=== PATIENT | female | born 1955 | race Caucasian/White ===

== ENCOUNTER → 2021-10-17 14:01 | Outpatient (BNVA) | payer MEDICARE, MEDICAID, SELFPAY | PROVIDERS: PCP Nurse Practitioner Community Health; Visit Provider Nurse Practitioner Family | DX: G24.3 Spasmodic torticollis (principal); G20 Parkinson's disease; G43.109 Migraine with aura, not intractable, without status migrainosus; R06.83 Snoring | CPT/HCPCS: 99212 ==

== ENCOUNTER → 2022-01-14 10:26 | Outpatient (BNVA) | payer MEDICARE, MEDICAID, SELFPAY | PROVIDERS: PCP Nurse Practitioner Community Health; Visit Provider Nurse Practitioner Family | DX: G20 Parkinson's disease (principal); G43.109 Migraine with aura, not intractable, without status migrainosus; G24.3 Spasmodic torticollis; Z79.899 Other long term (current) drug therapy | CPT/HCPCS: 99212 ==

== ENCOUNTER → 2022-06-17 09:03 | Outpatient (BNVA) | payer MEDICARE, MEDICAID, SELFPAY | PROVIDERS: PCP Nurse Practitioner Community Health; Visit Provider Nurse Practitioner Family | DX: G20 Parkinson's disease (principal); G43.109 Migraine with aura, not intractable, without status migrainosus; G24.3 Spasmodic torticollis; Z79.899 Other long term (current) drug therapy | CPT/HCPCS: 99212 ==

== ENCOUNTER → 2022-10-21 09:34 | Outpatient (BNVA) | payer MEDICARE, MEDICAID, SELFPAY | PROVIDERS: PCP Nurse Practitioner Community Health; Visit Provider Nurse Practitioner Family | DX: G20 Parkinson's disease (principal); G24.3 Spasmodic torticollis; G43.109 Migraine with aura, not intractable, without status migrainosus; R42 Dizziness and giddiness; Z79.899 Other long term (current) drug therapy | CPT/HCPCS: 99212 ==

== ENCOUNTER 2022-10-21 11:15 | Outpatient (REF) | payer MEDICARE, MEDICAID, SELFPAY | END 2022-10-21 11:16 | disposition home or self-care (01) | LOC: HO.10HDL 11:15 | PROVIDERS: Visit Provider Nurse Practitioner Family | DX: Z13.89 Encounter for screening for other disorder (principal) | CPT/HCPCS: 36415; 87798 ==

== ENCOUNTER 2022-12-09 13:53 | Outpatient (REF) | payer MEDICARE, MEDICAID, SELFPAY ==
[2022-12-12 19:19] LABS: A. Phagocytphilium DNA,RT-PCR NOT DETECTED (NOT DETECTED); Babesia Microti DNA, RT-PCR NOT DETECTED (NOT DETECTED); Borrelia Miyamotoi,DNA RT-PCR NOT DETECTED (NOT DETECTED); E.Chaffeensis DNA RT-PCR NOT DETECTED (NOT DETECTED); Lyme(Borrelia ssp)DNA RT-PCR NOT DETECTED (NOT DETECTED)
== END 2022-12-09 13:54 | disposition home or self-care (01) ==
LOC: HO.HMGCLDS 13:53
PROVIDERS: PCP Family Medicine; Visit Provider Nurse Practitioner Family
DX: R42 Dizziness and giddiness (principal); T14.8XXA Other injury of unspecified body region, initial encounter; W57.XXXA Bitten or stung by nonvenomous insect and other nonvenomous arthropods, initial encounter; Y93.9 Activity, unspecified; Y92.9 Unspecified place or not applicable; Y99.9 Unspecified external cause status; R21 Rash and other nonspecific skin eruption; M62.838 Other muscle spasm
CPT/HCPCS: 36415; 87798; 87801

== ENCOUNTER 2022-12-11 14:00 | Outpatient (RCR) | payer MEDICARE, MEDICAID, SELFPAY ==
[2022-12-03 11:00] VITALS: BP 142/82; PULSE 67; O2SAT 97
--- NOTE | 2022-12-03 12:23 | MHC.PT.EP ---
[facility] [place] Office [place] Office [place] Office [address] Gayathri Lyles [address] [phone] F: [phone] F: [phone] F: [phone] F: [phone] Physical Therapy Plan of Care Date of Evaluation: Date of Surgery: Diagnosis: This is a 67 yo female presenting to skilled PT with script for vertigo. Assessment: This is a 67 yo female presenting to skilled PT with script for vertigo. Patient reporting that she noticed her symptoms a few months ago, mainly with rolling in bed. Her symptoms have been on and off, however she started at [facility] and during her warm up when she was on the floor she started to have an increase in symptoms again. She has had nausea and vomiting. She also has Parkinson's but thinks her balance has not been impaired from the onset of her symptoms. I can feel my eyes moving when I get the vertigo. It feels like the room is spinning. Additionally, she had experienced a tick bite prior to the symptoms starting, PCP is aware. Examination shows + oculomotor tests with saccades, (-) VBI B, and decreased cervical AROM. She was (+) for BPPV with patrica-hallpike ? B however worse on the L and PT decided to trial treatment of the L initially. On the second attempt, no dizziness or nystagmus noted. Due to time balance was not assessed however based on her neurological background, her balance is not normal at baseline. S/S consistent with B PC BPPV and she would benefit from PT 2x/wk for 4wks to address impairments, implement HEP and optimize functional mobility. Frequency and Duration: The patient will be seen 2x/wk for 4wks Short Term Goals: Fdc Goals: I in HEP normalize movement in bed without symptoms demo no eye movement in testing positions Treatment Plan: Modalities to reduce pain, spasms and effusion. Manual therapy to restore motion and function. Therapeutic exercise to improve strength and flexibility. Neuromuscular re-education for posture and balance. Therapeutic activities to return to functional activities of daily living. Electronically signed by: Veronica Juarez PT Please sign and return to therapist. Thank you for your referral.
--- NOTE | 2023-01-12 15:23 | MHC.PT.DC ---
[facility] [place] Office [place] Office [place] Office [address] Vivek Lyles [address] [phone] F: [phone] F: [phone] F: [phone] F: [phone] Physical Therapy Discharge Report Diagnosis: This is a 67 yo female presenting to skilled PT with script for vertigo. Date of Surgery: Date of Evaluation: 12/03/22 Date of Discharge: 01/12/23 Treatments to Date: 4 Cancellations to Date: 0 No Shows to Date: 0 Discharge Status: Achieved Goals Improved Function Independent with HEP Discharge Summary: 12/11: Patient was negative in all 6 canals, educated her on keeping one appointment and calling to cancel if symptoms remain steady. Also spent time on Parkinson's programs in the area. DC'd chart after 30 days. Electronically signed by: Veronica Juarez PT Please sign and return to therapist. Thank you for your referral.
== END 2023-01-12 15:23 | disposition home or self-care (01) ==
LOC: HO.PTCHIC 14:00
PROVIDERS: PCP Family Medicine; Visit Provider Nurse Practitioner Family
DX: R42 Dizziness and giddiness (principal)
CPT/HCPCS: 95992; 97110; 97162

== ENCOUNTER 2023-04-22 09:37 | Outpatient (AMB) | payer MEDICARE, MEDICAID, SELFPAY ==
--- NOTE | 2023-04-22 09:39 | MHC.OFFVIS ---
Intake Vital Signs 04/22/23 09:42 Weight 133 lb BP 108/72 Blood Pressure Location Rt brachial Position Sitting Pulse 77 Pulse Source Pulse Oximeter Pulse Oximetry (%) 97 Oxygen Delivery Method Room Air Intake Visit Reasons: 6m follow up - LVM Intake Note: F/U for parkinsons Police Officer Required: No Allergies droperidol [From Inapsine] Allergy (Verified 10/21/22 09:45) unknown Penicillins Allergy (Verified 10/21/22 09:45) Unknown pramipexole [From Mirapex] Allergy (Verified 04/22/23 09:40) unknown ropinirole [From Requip] Allergy (Verified 04/22/23 09:40) unknown Medication List - Last Reconciled 04/22/23 by TRINO Huerta carbidopa-levodopa 25-100 mg 2 tabs PO QID 90 days carbidopa-levodopa 50-200 mg ER 1 tab PO BEDTIME 90 days fluoride (sodium) 1.1% (Denta 5000 Plus) appl PO DAILY riboflavin (vitamin B2) 200 mg (2 x 100 mg) PO BID 90 days selegiline HCl 5 mg PO DAILY 90 days HPI HPI Comments History of Present Illness Details 67-yr-old female presents for f/u visit. Pt denies any significant interval medical history changes. Pt's current PD medication regimen: CD-LD 25-100mg 2 tabs qid and CD-LD ER 50-200mg qhs Pt's primary concerns are: Plans to see GI- has been having right abd pain- has a h/o kidney stones- but no recent stones. Had a colonoscopy- normal. Higher fat foods seem to trigger abd pain. She tried coming off dairy- has noticed less stiffness and heaviness in her hips and thighs. However, if she eats certain foods she may still have right abd pain. RUQ US- was normal. She completed PT, which was helpful for the dizziness and feels over steadier. Pt reports: ADL's: Ind Swallowing: No issues recently, doing better w/ swallowing meds. Cough: Denies. Drooling: No Orthostatic lightheadedness: None. Trying to drink more fluids. Constipation: Rarely- if eats plain white rice or white flour pasta. Stiffness: Improved. Using a standing desk for art. Tremor: At times. Dyskineisa: Mild lingual movements. Dystonia: Mores if stressed/tired or in the evenings, can have dystonic movements in arms, neck, and right hip/groin pain. Falls: None Hallucinations: No Memory: No Sleep: Most of the time sleeping well- the recent heat has been more difficult. Exercise: She has not yet joined the gym yet, but has been quite active. Other: Cervical dystonia is ok. Headaches- better w/ B2. PFSH Medical History Nephroblastomatosis Surgical History H/O lithotripsy H/O: hysterectomy Family History Mother HTN (hypertension) Father HTN (hypertension) Social History Household Members: Spouse and Children Alcohol intake: current Alcohol intake frequency: does not drink Patient Tobacco Use Status: Never used Tobacco Current occupational status: retired Review of Systems Const All systems reviewed & are unremarkable except as noted in HPI and below Physical Exam Vital Signs: Last Vital Signs Pulse 77 04/22/23 09:42 BP 108/72 04/22/23 09:42 Pulse Ox 97 04/22/23 09:42 Oxygen Delivery Method Room Air 04/22/23 09:42 Const General: cooperative and no acute distress Resp Effort & Inspection: normal respiratory effort and able to speak in complete sentences Neuro Other: Expression: Mild decreased expression Voice: Soft Tremor: Mild UE tremor Tone: RUE tone Dyskinesia: Mild lingual movements FFM: ok, slightly decreased on left. Foot taps: LLE bradykinesia- induces mid-foot cramping Gait: Stands well, decreased arm swing, short steps. Psych: Pleasant affect Assessment & Plan Assessment & Plan (1) Parkinson disease: Comment: More dystonic features. No h/o genetic testing done to r/o HD. Initial diagnosis in [place]. Code(s): G20 - Parkinson's disease (2) Migraine headache with aura: Code(s): G43.109 - Migraine with aura, not intractable, without status migrainosus (3) Cervical dystonia: Code(s): G24.3 - Spasmodic torticollis Plan For dizziness and recent tic bite: Tic panel- normal Dizziness imrpoved- monitor clinically ? For PD- Continue to try to take increased fluids.. Continue increasing physical activity. Continue Sinemet 25-100mg 2 tabs QID at 7am, 11am, 3pm, 7pm Continue Sinemet CR 50-200mg 1 tab qhs. Continue Selegeline 5mg qam. Inbrija prn dystonia (has sample). For headaches- Continue Riboflavin 200mg bid for prevention. Magnesium previously not tolerated. Ibuprofen/Aleve/Sumatriptan at onset of migraine onset, may take w/ Benadryl. For cervical dystonia- Monitor clinically. Gen'l: Gi consult as planeed- ? allergy consult if GI work-up negative. ? f/u in 6 months or sooner prn. Coding Level of Care Code Est Pt Level 4 (52857) Diagnoses Parkinson disease G20 Migraine headache with aura G43.109 Cervical dystonia G24.3
[2023-04-22 09:42] VITALS: BP 108/72; PULSE 77; O2SAT 97
== END 2023-04-22 10:27 | disposition home or self-care (01) ==
LOC: HO.HSMS 09:37
PROVIDERS: PCP Family Medicine; Visit Provider Nurse Practitioner Family
DX: G20 Parkinson's disease (principal); G43.109 Migraine with aura, not intractable, without status migrainosus; G24.3 Spasmodic torticollis
CPT/HCPCS: 99214

== ENCOUNTER → 2023-04-22 09:37 | Outpatient (BNVA) | payer MEDICARE, MEDICAID, SELFPAY | PROVIDERS: PCP Family Medicine; Visit Provider Nurse Practitioner Family | DX: G20 Parkinson's disease (principal); G43.109 Migraine with aura, not intractable, without status migrainosus; G24.3 Spasmodic torticollis | CPT/HCPCS: 99212 ==

== ENCOUNTER 2023-10-26 09:30 | Outpatient (AMB) | payer MEDICARE, MEDICAID, SELFPAY ==
--- NOTE | 2023-10-26 09:37 | A.OFFVIS_ITS ---
Intake Vital Signs 10/26/23 09:39 Weight 133 lb 6 oz BP 124/82 Blood Pressure Location Rt brachial Position Sitting Pulse 80 Pulse Source Pulse Oximeter Pulse Oximetry (%) 99 Oxygen Delivery Method Room Air Intake Visit Reasons: 6m follow up-Confirmed Intake Note: Patient presents for 6 month follow up Allergies droperidol [From Inapsine] Allergy (Verified 10/26/23 09:39) unknown Penicillins Allergy (Verified 10/26/23 09:39) Unknown pramipexole [From Mirapex] Allergy (Verified 10/26/23 09:39) unknown ropinirole [From Requip] Allergy (Verified 10/26/23 09:39) unknown Medication List - Last Reconciled 10/26/23 by Richelle Clancy, SENIOR HR MANAGER carbidopa-levodopa 25-100 mg 2 tabs PO QID 90 days carbidopa-levodopa 50-200 mg ER 1 tab PO BEDTIME 90 days fluoride (sodium) 1.1% (Denta 5000 Plus) appl PO DAILY riboflavin (vitamin B2) 200 mg (2 x 100 mg) PO BID 90 days selegiline HCl 5 mg PO DAILY 90 days HPI HPI Comments History of Present Illness Details 68-yr-old female presents for f/u visit. Pt denies any significant interval medical history changes. She is scheduled for cataract surgery on 10/30/23 and 11/16/23- by Dr Magana. Pt's current PD medication regimen: CD-LD 25-100mg 2 tabs qid and CD-LD ER 50- 200mg qhs. She has been holding Selegiline d/t the upcoming surgeries. She did have a few days of increased dystonia- typically when she is off, tired, or stressed, and typically later in the day- she wonders if this was d/t stress. ADL's: Ind Swallowing: Doing well Drooling: None Orthostatic lightheadedness: None Constipation: Occasionally- using benefiber qd prn. Tries to avoid constipation d/t cystocele Freezing: Rarely Stiffness: Can be stiff. Tremor: Some but not a lot Falls: None Hallucinations: None Memory: Good Sleep: Sleeping ok Exercise: Other: Still trying to avoid dairy, high fat foods- and trying to eat more protein based meals earlier in the day- to avoid biliary colic s/s. Can still have headache attacks- if she overdoes it. [facility] Medical History (Updated 10/26/23 @ 17:14 by TRINO Huerta) Tick bite Snoring Parkinson disease Nephroblastomatosis Surgical History H/O lithotripsy H/O: hysterectomy Family History Mother HTN (hypertension) Father HTN (hypertension) Social History Household Members: Spouse and Children Alcohol intake: current Alcohol intake frequency: does not drink Patient Tobacco Use Status: Never used Tobacco Current occupational status: retired Review of Systems Const All systems reviewed & are unremarkable except as noted in HPI and below Physical Exam Vital Signs: Last Vital Signs Pulse 80 10/26/23 09:39 BP 124/82 10/26/23 09:39 Pulse Ox 99 10/26/23 09:39 Oxygen Delivery Method Room Air 10/26/23 09:39 Const General: cooperative and no acute distress Resp Effort & Inspection: normal respiratory effort and able to speak in complete sentences Neuro Other: General: A*O x's 3 Expression: Mild decreased expression Voice: Soft Tremor: Mild RUE tremor Tone: RUE tone Dyskinesia: None observed today- pt wearing mask FFM: Slightly decreased on left. Foot taps: LLE bradykinesia Gait: Stands well, decreased arm swing, short steps. Psych: Pleasant affect Assessment & Plan Assessment & Plan (1) Parkinson's disease with dyskinesia: Comment: More dystonic features. No h/o genetic testing done to r/o HD. Initial diagnosis in [place]. Code(s): G20.B1 - Parkinson's disease with dyskinesia, without mention of fluctuations (2) Cervical dystonia: Code(s): G24.3 - Spasmodic torticollis (3) Migraine headache with aura: Code(s): G43.109 - Migraine with aura, not intractable, without status migrainosus Plan For dizziness Dizziness improved- monitor clinically ? For PD- Continue to try to take increased fluids.. Continue increasing physical activity. Continue Sinemet 25-100mg 2 tabs QID at 7am, 11am, 3pm, 7pm Continue Sinemet CR 50-200mg 1 tab qhs. Continue to hold Selegeline 5mg for upcoming cataract sx's- monitor if any worsening of stiffness, dystonia while holding. If no difference, consider holding further. Inbrija prn dystonia (has sample). ? For headaches- Continue Riboflavin 200mg bid for prevention. Magnesium previously not tolerated. Ibuprofen/Aleve/Sumatriptan at onset of migraine onset, may take w/ Benadryl. Info shared on migraine neuromodlation stimulation devices- such as cefaly or nerivio. ? For cervical dystonia- Monitor clinically. ? f/u in 6 months or sooner prn. Coding Level of Care Code Est Pt Level 4 (80473) Diagnoses Parkinson's disease with dyskinesia G20.B1 Cervical dystonia G24.3 Migraine headache with aura G43.109
[2023-10-26 09:39] VITALS: BP 124/82; PULSE 80; O2SAT 99
== END 2023-10-26 10:26 | disposition home or self-care (01) ==
PROVIDERS: PCP Family Medicine; Visit Provider Nurse Practitioner Family
DX: G20.B1 Parkinson's disease with dyskinesia, without mention of fluctuations (principal); G24.3 Spasmodic torticollis; G43.109 Migraine with aura, not intractable, without status migrainosus
CPT/HCPCS: 99214

== ENCOUNTER → 2023-10-26 09:30 | Outpatient (BNVA) | payer MEDICARE, MEDICAID, SELFPAY | PROVIDERS: PCP Family Medicine; Visit Provider Nurse Practitioner Family | DX: G20.B1 Parkinson's disease with dyskinesia, without mention of fluctuations (principal); G24.3 Spasmodic torticollis; G43.109 Migraine with aura, not intractable, without status migrainosus | CPT/HCPCS: 99212 ==

== ENCOUNTER 2024-11-14 09:11 | Outpatient (AMB) | payer MEDICARE, SELFPAY ==
--- NOTE | 2024-11-14 09:32 | MHC.OFFVIS ---
Vital Signs 11/14/24 09:40 Height 5 ft 4 in Weight 130 lb BMI 22.3 BP 108/62 Blood Pressure Location Rt brachial Position Sitting Pulse 86 Pulse Source Pulse Oximeter Pulse Oximetry (%) 97 Intake Visit Reasons: 6 Month F/U Inside Upholsterer Required: No Accompanied by: Self / Same As Patient Allergies droperidol [From Inapsine] Allergy (Verified 10/26/23 09:39) unknown Penicillins Allergy (Verified 10/26/23 09:39) Unknown pramipexole [From Mirapex] Allergy (Verified 10/26/23 09:39) unknown ropinirole [From Requip] Allergy (Verified 10/26/23 09:39) unknown Medication List - Last Reconciled 11/14/24 by TRINO Huerta carbidopa-levodopa 25-100 mg 2 tabs PO QID 90 days carbidopa-levodopa 50-200 mg ER 1 tab PO BEDTIME 90 days cholecalciferol (vitamin D3) 25 mcg PO DAILY fluoride (sodium) 1.1% (Denta 5000 Plus) appl PO DAILY mecobalamin (vitamin B12) 1,000 mcg PO DAILY riboflavin (vitamin B2) 200 mg (2 x 100 mg) PO BID 90 days rimegepant (Nurtec ODT) 75 mg PO ONCE PRN 30 days MDD 1 tab selegiline HCl 5 mg PO DAILY 90 days Do you need a note to return to daycare/school/sports/work: No HPI Comments Details: 69-yr-old female presents for f/u visit of movement d/o. Pt denies any significant interval medical history changes. She underwent bilateral cataract surgery in Oct and Nov 2023- by Dr Magana. She has had an interval diagnosis of osteoporosis- she was tried on daily alendronate, however this caused a flare-up of her IBS s/s- having increased stools after any po intake. So is not taking anything for this now. She has been undergoing GI work-up through [facility], she was tried on dicyclomine but it caused sleepiness. She has had a vaginal prolapse, initially was thought to be mild, had pelvic floor therapy and realized it was more pronounced than previously thought. She has had 3 children (3rd via ), and had a hysterectomy in 2008. She is currently using a pesary. Without the pesary, the prolapse can prevent urination. She states she has been volunteering a the [employer], [employer], and does need to lift some time. She has had episodes of intense fatigue- had period where hse was becoming sleepy when driving. She was found to have low vit D and B12, and this has improved since starting B-12. She has never had a sleep study. Pt's current PD medication regimen: CD-LD 25-100mg 2 tabs qid and CD-LD ER 50-200mg qhs. She has resumed Selegiline 5 mg q.a.m.-feels like it helps her anxiety, but notes it has a high co-pay on her current insurance. Overall, her movements are stable. If tired or stressed, especially in the afternoon, the dystonia will start kicking in. ADL's: Ind Swallowing: Having a bit more difficulty swallowing pills. Has a family member who is a [employer]PERVISOR- who gives her tips. Drooling: None Orthostatic lightheadedness: None Constipation: Stable- continues to work on diet- considering doing the low fod map diet Freezing: Rarely Stiffness: Can be stiff. Tremor: Some but not a lot Falls: Rarely- not worse Hallucinations: None Memory: Good Sleep: Sleeping can be on and off- maybe r/t GI s/s. She is concerned that she has had episodes of daytime sleepiness, where she has started to be sleepy while driving. She is now more conscious to avoid driving sleepy. She does continue to snore. Did not previously have sleep study. Exercise: She did try outdoor ice skating, and did ok with this once she became reacclimated to this. Is hoping to return to the [facility]- has not been going due to her recent medical appointments. Continues to have migraine headache attacks, typically 2-3 times a month, which can last 1-3 days. Baseline migraine headache: Throbbing headache a/w photophobia, phonophobia, fatigue, activity intolerance. Previously had tried Sumatriptan and Naratriptan, but caused rebound headaches. [facility] Medical History Tick bite Snoring Parkinson disease Nephroblastomatosis Surgical History H/O lithotripsy H/O: hysterectomy Family History Mother HTN (hypertension) Father HTN (hypertension) Social History Household Members: Spouse and Children Alcohol intake: current Alcohol intake frequency: does not drink Patient Tobacco Use Status: Never used Tobacco Current occupational status: retired Physical Exam Vital Signs: Last Vital Signs Pulse 86 11/14/24 09:40 BP 108/62 11/14/24 09:40 Pulse Ox 97 11/14/24 09:40 BMI result Body Mass Index 22.3 Const General: cooperative and no acute distress Resp Effort & Inspection: normal respiratory effort and able to speak in complete sentences Neuro Other: General: A&O x's 3 Expression: Mild decreased expression Voice: Soft Tremor: No visible tremor today. Tone: RUE tone. Right hip knee tightness, exam movement elicits slight dystonia. Dyskinesia: None observed today FFM: Slightly decreased. Foot taps: bradykinesia Gait: Stands well, decreased arm swing, knees slightly bent, short steps with lower floor clearance. Psych: Pleasant affect Assessment & Plan Assessment & Plan (1) Parkinson's disease with dyskinesia: Comment: More dystonic features. No h/o genetic testing done to r/o HD. Initial diagnosis in [place]. Code(s): G20.B1 - Parkinson's disease with dyskinesia, without mention of fluctuations Category: Medical (2) Snoring: Code(s): R06.83 - Snoring Category: Medical (3) Excessive daytime sleepiness: Comment: ESS -12 Code(s): G47.19 - Other hypersomnia Category: Medical (4) Migraine headache with aura: Code(s): G43.109 - Migraine with aura, not intractable, without status migrainosus Category: Medical (5) Cervical dystonia: Code(s): G24.3 - Spasmodic torticollis Category: Medical Plan For sleep difficulties, excessive daytime sleepiness, and snoring: Patient is advised to undergo in-lab PSG to assess for sleep apnea and PLMS in setting of Parkinson's disease. For PD- dystonic- Continue to try to take increased fluids.. Continue increasing physical activity. Continue Sinemet 25-100mg 2 tabs QID at 7am, 11am, 3pm, 7pm Continue Sinemet CR 50-200mg 1 tab qhs. Continue Selegeline 5mg q.a.m.- this may indeed help her mood/anxiety. Could consider trialing a antidepressant/antianxiety agent instead. Inbrija prn dystonia (has sample). Previous trials- pramipexole and ropinirole- not tolerated. Amantadine caused hallucinations. ? For headaches- Continue Riboflavin 200mg bid for prevention. Ibuprofen/Aleve/ at onset of migraine onset, may take w/ Benadryl. Trial Rimegepant ODT (Nurtec ODT) 75mg, 1 tab at onset of headache.. Max of 1 tabs (75mg) per 24 hours. May adjunct with OTC Tylenol 650mg q 4 hours, Ibuprofen 600mg q 6 hours, or Naproxen 440mg q 12 hrs prn. Potential adverse effects, include but are not limited to fatigue, nausea, dry mouth, constipation. Info shared on nonpharmacological migraine treatment interventions. Previous migraine treatment trials: Sumatriptan and naratriptan caused rebound headache. Magnesium previously not tolerated. ? For cervical dystonia- Monitor clinically. For dizziness Dizziness improved- monitor clinically ? f/u in 6 months or sooner prn. Orders: Orders RT PSG in-lab sleep study Today G20.B1 - Parkinson's disease with dyskinesia, without mention of fluctuations, G47.19 - Other hypersomnia, R06.83 - Snoring Medications: New rimegepant (Nurtec ODT) 75 mg PO ONCE 30 days PRN 8 tabs 3RF migraine headache MDD 1 tab Refilled selegiline HCl 5 mg PO DAILY 90 days 90 caps 3RF carbidopa-levodopa 25-100 mg 2 tabs PO QID 90 days 720 tabs 3RF carbidopa-levodopa 50-200 mg ER 1 tab PO BEDTIME 90 days 90 tabs 3RF Coding Level of Care Code Est Pt Level 4 (70612) Diagnoses Parkinson's disease with dyskinesia G20.B1 Snoring R06.83 Excessive daytime sleepiness G47.19 Migraine headache with aura G43.109 Cervical dystonia G24.3
[2024-11-14 09:40] VITALS: BP 108/62; PULSE 86; O2SAT 97; BMI 22.3
== END 2024-11-14 10:47 | disposition home or self-care (01) ==
PROVIDERS: PCP Family Medicine; Visit Provider Nurse Practitioner Family
DX: G20.B1 Parkinson's disease with dyskinesia, without mention of fluctuations (principal); R06.83 Snoring; G47.19 Other hypersomnia; G43.109 Migraine with aura, not intractable, without status migrainosus; G24.3 Spasmodic torticollis
CPT/HCPCS: 99214

== ENCOUNTER → 2024-11-14 09:11 | Outpatient (BNVA) | payer MEDICARE, SELFPAY | PROVIDERS: PCP Family Medicine; Visit Provider Nurse Practitioner Family | DX: G20.B1 Parkinson's disease with dyskinesia, without mention of fluctuations (principal); G43.109 Migraine with aura, not intractable, without status migrainosus; G47.19 Other hypersomnia; G24.3 Spasmodic torticollis; R06.83 Snoring | CPT/HCPCS: 99212 ==

== ENCOUNTER → 2024-12-12 20:30 | Outpatient (BNV) | payer MEDICARE, SELFPAY | PROVIDERS: Visit Provider Psychiatry & Neurology Neurology | DX: R06.83 Snoring (principal); G47.19 Other hypersomnia | CPT/HCPCS: 95810 ==

== ENCOUNTER → 2024-12-12 20:30 | Outpatient (REF) | payer MEDICARE, SELFPAY ==
--- OUTSIDE RECORDS SUMMARY | 2024-12-12 21:11 | XMS_ITS | Encounter Summary ---
Author Organization [employer] Address [address] [facility] [address] [place] [address] Care Team Providers Care Document Manager Name Role Phone Parish Romero NP Primary Care Provider Encounter Details Date Type Department Care Team (Late st Contact Info) Description 12/08/2024 9:00 AM EST Immunization [facility] MEDICAL [address] [place] [address] Need for vaccination (Primary Dx) Social History Tobacco Use Types Packs/Day Years Used Date Smoking Tobacco: Never Passive Smoke Exposure: Never Smokeless Tobacco: Never Alcohol Use Standard Drinks/Week Comments Not Currently 0 (1 standard drink = 0.6 oz pur e alcohol) 1 or 2 small drinks per year Housing Stability Answer Date Recorded What is your housing situation today? I have gina valdes 08/08/[address] you li ve. Do you have problems with any of the following? None of the above 08/08/2024 Food Insecurity Answer Date Recorded Within the past 12 months, y ou worried that your food would run out before you got money to buy more: Never True 08/08/2024 Within the past 12 months,th e food you bought just didn't last and you didn't have enough money to get more: Never True Transportation Answer Date Recorded In the past 12 months, has l ack of transportation kept you from medical appts, meetings, work or from getting things needed for daily living? No 08/08/2024 Utilities Answer Date Recorded In the past 12 months, has t he electric, gas, oil or water company threatened to shut off services in your home? No 08/08/2024 Depression Answer Date Recorded Patient Health Questionnaire-2 Score 0 08/08/2024 Internet Access Answer Date Recorded Internet Access Q1 Yes 08/08/2024 Internet Access Q2 Not on file 08/08/2024 Comments No Sex and Gender Information Value Date Recorded Sex Assigned at Female 11/24/2022 11:11 AM EST Legal Sex Female 5:35 PM EDT Gender Identity Non-Binary 09/22/2024 10:39 AM EST Sexual Orientation Straight 11/24/2022 11 :12 AM EST documented as of this encounter Progress Notes * Janel Coreas RN - 12/08/2024 9:00 AM EST Loulou Moreau 1955 presents unaccompanied today for a nurse-led vaccination administration: COVID19 visit. Subjective: Patient reports feeling well today; denies: fever, chills, cold symptoms over the last 24 hours. Objective: There were no vitals taken for this visit. Brief physical exam completed with patient fully clothed: GENERAL: Well-appearing non-binary in no acute distress. HEENT: No scleral icterus. Moist mucous membranes. No nasal discharge. PULMONARY: Breathing comfortably on room air. MUSCULOSKELETAL: Gait appropriate and symmetric. EXTREMITIES: Warm and well perfused. NEUROLOGIC: Motor function grossly intact. Assessment: Patient is due for vaccination administration: COVID 19 . Patient is healthy and well-appearing anddenies questions necessitating provider visit. Patient is eligible for a nurse-led visit. Educated patient on procedure. Reviewed possible sided effects of vaccination and provided VIS in patient preferred language. . Patient has no additional questions. Obtained verbal consent to continue with visit. Administration documented. Patient had no adverse reactions to administration. Plan: Call with questions or concerns. Next visit with nurse: kin Next visit with provider: 02/09/25 Patient meets criteria for entirety of visit to be completed by nurse today. Visit led and completed by Janel Coreas RN. documented in this encounter Plan of Treatment Upcoming Encounters Date Type Department Care Team (Late st Contact Info) Description 01/17/2025 11:[address] [facility] NUTRITION [address] [place] [address] Ida Donovan, FAIZA [address] [place] [address] 02/09/2025 9:00 AM EDT Office Visit [facility] MEDICAL [address] [place] [address] Parish Romero NP [address] [place] [address] 04/27/2025 9:20 AM EDT Office Visit [facility] Dental [address] [place] [address] Juliette Arriaza LLD 9 [place] [address] documented as of this encounter Visit Diagnoses Diagnosis Need for vaccination- Primary Need for prophylactic vaccination and inoculation against unspecified single disease documented in this encounter Care Teams Document Manager Relationship Specialty Start Date End Date Parish Romero NP [address] [place] [address] PCP - General Internal Medicine 02/18/23 documented as of this encounter
--- OUTSIDE RECORDS SUMMARY | 2024-12-12 21:11 | XMS_ITS | Encounter Summary ---
Author Organization [employer] Address [address] [place] [address] 7[address] [place] [address] Care Team Providers Care Automobile Radiator Mechanic Name Role Phone Parish Romero NP Primary Care Provider Encounter Details Date Type Department Care Team (Latest Contact Info) Description 10/08/2020 Abstract [facility] Dental, Provider, DDS Social History Tobacco Use Types Packs/Day Years Used Date Smoking Tobacco: Never Assessed Comments Unknown Sex and Gender Information Value Date Recorded Sex Assigned at Female 11/24/2022 11:11 AM EST Legal Sex Female 5:35 PM EDT Gender Identity Non-Binary 09/22/2024 10:39 AM EST Sexual Orientation Straight 11/24/2022 11 :12 AM EST documented as of this encounter Plan of Treatment Upcoming Encounters Date Type Department Care Team (Late st Contact Info) Description 01/17/2025 11:30 AM EDT Telemedicine [facility] NUTRITION [address] [place] [address] Ida Donovan, RD [address] [place] [address] 02/09/2025 9:00 AM EDT Office Visit [facility] MEDICAL [address] [place] [address] Parish Roemro NP [address] [place] [address] 04/27/2025 9:20 AM EDT Office Visit [facility] Dental [address] [place] [address] Juliette Arriaza LLD 9 [place] [address] documented as of this encounter Visit Diagnoses Not on filedocumented in this encounter Care Teams Automobile Radiator Mechanic Relationship Specialty Start Date End Date Parish Romero NP [address] [place] [address] PCP - General Internal Medicine 02/18/23 documented as of this encounter
--- OUTSIDE RECORDS SUMMARY | 2024-12-12 21:11 | XMS_ITS | Encounter Summary ---
Author Organization [employer] Address [address] [facility] [address] [place] [address] Care Team Providers Care Registry Rn Name Role Phone Parish Romero NP Primary Care Provider Encounter Details Date Type Department Care Team (Late st Contact Info) Description 10/22/2024 Orders Only [facility] [address] [place] [address] Parish Romero NP [address] [place] [address] Social History Tobacco Use Types Packs/Day Years Used Date Smoking Tobacco: Never Passive Smoke Exposure: Never Smokeless Tobacco: Never Alcohol Use Standard Drinks/Week Comments Not Currently 0 (1 standard drink = 0.6 oz pur e alcohol) 1 or 2 small drinks per year Housing Stability Answer Date Recorded What is your housing situation today? I have ginamichi valdes 08/08/[address] you [...] Info) Description 01/17/2025 11:30 AM EDT Telemedicine [facility] NUTRITION [address] [place] [address] Ida Donovan, FAIZA [address] [place] [address] 02/09/2025 9:00 AM EDT Office Visit [facility] MEDICAL [address] [place] [address] Parish Romero NP [address] [place] [address] 04/27/2025 9:20 AM EDT Office Visit [facility] Dental [address] [place] [address] Juliette Arriaza LLD 9 [place] [address] documented as of this encounter Procedures Procedure Name Priority Date/Time Associated Diagnosis Comments COMPREHENSIVE METABOLIC PANEL Routine 10/19/2024 9:56 AM EST CBC WITH AUTO DIFFERENTIAL Routine 10/19/2024 9:55 AM EST documented in this encounter Results * Comprehensive Metabolic Panel (10/19/2024 9:56 AM EST) Blood Venous blood specimen / Unknown Parish Romero BACK LINE COOK LAB BLOOD ORDERABLES Final R esult * CBC auto differential (10/19/2024 9:55 AM EST) Blood Venous blood specimen / Unknown Parish Romero NP LAB BLOOD ORDERABLES Final R esult documented in this encounter Visit Diagnoses Not on filedocumented in this encounter Care Teams Registry Rn Relationship Specialty Start Date End Date Parish Romero NP [address] [place] [address] PCP - General Internal Medicine 02/18/23 documented as of this encounter
--- OUTSIDE RECORDS SUMMARY | 2024-12-12 21:11 | XMS_ITS | Encounter Summary ---
Author Organization [employer] [facility] Address [address] [facility] 7t [place] [address] Care Team Providers Care Segment Block Layer Name Role Phone Parish Romero NP Primary Care Provider Encounter Details Date Type Department Care Team (Late st Contact Info) Description 12/16/2023 Orders Only [facility] [address] [place] [address] Parish Romero NP [address] [place] [address] Social History Tobacco Use Types Packs/Day Years Used Date Smoking Tobacco: Never Passive Smoke Exposure: Never Smokeless Tobacco: Never Comments No Sex and Gender Information Value [...] 01/17/2025 11:[address] [facility] NUTRITION [address] [place] [address] Ida Donovan, FAIZA [address] [place] [address] 02/09/2025 9:00 AM EDT Office Visit [facility] MEDICAL [address] [place] [address] Parish Romero NP [address] [place] [address] 04/27/2025 9:20 AM EDT Office Visit [facility] Dental [address] [place] [address] Juliette Arriaza LLD 9 [place] [address] documented as of this encounter Procedures Procedure Name Priority Date/Time Associated Diagnosis Comments HEPATIC FUNCTION PANEL Routine 2:02 PM EST URINALYSIS, COMPLETE, WITH REFLEX TO CULTURE Routine 12/16/2023 2:01 PM EST MAGNESIUM Routine 12/16/2023 12:59 PM EST CBC WITH AUTO DIFFERENTIAL Routine 12/16/2023 11:34 AM EST documented in this encounter Results * Hepatic Function Panel (12/16/2023 2:02 PM EST) Blood Venous blood specimen / Unknown Parish Romero NP LAB BLOOD ORDERABLES Final R esult * Urinalysis, Complete, with Reflex to Culture (12/16/2023 2:01 PM EST) Urine Parish Romero NP LAB URINE ORDERABLES Final R esult * Magnesium (12/16/2023 12:59 PM EST) Blood Venous blood specimen / Unknown Parish Romero NP LAB BLOOD ORDERABLES Final R esult * CBC auto differential (12/16/2023 11:34 AM EST) Blood Venous blood specimen / Unknown Parish Romero NP LAB BLOOD ORDERABLES Final R esult documented in this encounter Visit Diagnoses Not on filedocumented in this encounter Care Teams Segment Block Layer Relationship Specialty Start Date End Date Parish Romero NP [address] [place] [address] PCP - General Internal Medicine 02/18/23 documented as of this encounter
--- OUTSIDE RECORDS SUMMARY | 2024-12-12 21:11 | XMS_ITS | Encounter Summary ---
Author Organization [employer] [facility] Address [address] [place] [address] 7[address] [place] [address] Care Team Providers Care Computer Training Specialist Name Role Phone Parish Romero NP Primary Care Provider [phone] Encounter Details Date Type Department Care Team (Latest Contact Info) Description 11/12/2021 Abstract [facility], Provider, DDS Social [...] Info) Description 01/17/2025 11:30 AM EDT Telemedicine [facility] NUTRITION [address] [place] [address] Ida Donovan, RD [address] [place] [address] 02/09/2025 9:00 AM EDT [facility] Visit [facility] MEDICAL [address] [place] [address] Parish Romero NP [address] [place] [address] 04/27/2025 9:20 AM EDT Office Visit [facility] Dental [address] [place] [address] Juliette Arriaza LLD 9 [place] [address] documented as of this encounter Visit Diagnoses Not on filedocumented in this encounter Care Teams Computer Training Specialist Relationship Specialty Start Date End Date Parish Romero NP [address] [place] [address] PCP - General Internal Medicine 02/18/23 documented as of this encounter
--- OUTSIDE RECORDS SUMMARY | 2024-12-12 21:11 | XMS_ITS | Encounter Summary ---
Author Organization [employer] Address [address] [facility] 7[address] [place] [address] Care Team Providers Care Bullion Weigher Name Role Phone Parish Romero NP Primary Care Provider Encounter Details Date Type Department Care Team (Latest Contact Info) Description 03/28/2019 Abstract [facility] Dental, Provider, DDS Social [...] Info) Description 01/17/2025 11:30 AM EDT Telemedicine [facility] NUTRITION [address] [place] [address] Ida Donovan, RD [address] [place] [address] 02/09/2025 9:00 AM EDT Office Visit [facility] MEDICAL [address] [place] [address] Parish Romero NP [address] [place] [address] 04/27/2025 9:20 AM EDT Office Visit [facility] Dental [address] [place] [address] Juliette Arriaza LLD 9 [place] [address] documented as of this encounter Visit Diagnoses Not on filedocumented in this encounter Care Teams Bullion Weigher Relationship Specialty Start Date End Date Parish Romero NP [address] [place] [address] PCP - General Internal Medicine 02/18/23 documented as of this encounter
--- OUTSIDE RECORDS SUMMARY | 2024-12-12 21:11 | XMS_ITS | Clinical Summary ---
Author Organization [facility] Address [address] [address] Phone Care Team Providers Care Chrome Cleaner Name Role Phone Parish Romero NP Primary Care Provider [phone] Allergies Active Allergy Reactions Criticality Noted Date Comments Droperidol Other (see comments) High 11/23/2019 Apnea Erythromycin Nausea And Vomiting Low 11/23/2019 Morphine Nausea And Vomiting Low 11/23/2019 Other 01/08/2022 Penicillins Rash Low 11/23/2019 Pramipexole Other (see comments) Low 11/23/2019 Ropinirole Other (see comments) Low 11/23/2019 Impulsiveness Medications carbidopa-levod opa (SINEMET) 25-100 MG per tablet Take 2 tablets by mouth in the morning and 2 tablets at noon and 2 tablets in the evening and 2 tablets before bedtime. 0 Active selegiline (ELDEPRYL) 5 MG tablet Take 5 mg by mouth 1 (one) time each day with breakfast 0 Active Riboflavin (Vitamin B-2) 100 MG tablet Take 2 tablets by mouth 2 (two) times a day 2 Active carbidopa-levod opa CR (SINEMET CR) 50-200 MG per CR tablet Take 1 tablet by mouth at bed time 1 Active Active Problems Problem Noted Date Diagnosed Date Nephrolithiasis 01/09/2022 Social History Tobacco Use Types Packs/Day Years Used Date Smoking Tobacco: Never Alcohol Use Standard Drinks/Week Comments Yes 0 (1 standard drink = 0.6 oz pur e alcohol) occasionally Comments Unknown Sex and Gender Information Value Date Recorded Sex Assigned at Not on file Legal Sex Female 2:20 PM EDT Gender Identity Not on file Sexual Orientation Not on file 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 Not on file Not on file Not on file Plan of Treatment Health Maintenance Due Date Last Done Comments Breast Cancer Screening 1955 Colorectal Cancer Screening: Annual FOBT 2006 Colorectal Cancer Screening: Colonoscopy 2006 Colorectal Cancer Screening: Sigmoidoscopy 2006 Pneumococcal Vaccine: 65+ Ye ars (1 of 1 - PCV) 2022 Influenza Vaccine (#1) 2024 Hepatitis B Vaccine Aged Out No longe r eligible based on patient's age to complete this topic Insurance MEDICARE MEDICAID [place] Care Teams Chrome Cleaner Relationship Specialty Start Date End Date Parish Romero NP [address] [place] [address] PCP - General Nurse Practitioner 12/23/21
--- OUTSIDE RECORDS SUMMARY | 2024-12-12 21:11 | XMS_ITS | Clinical Summary ---
Author Organization [employer] [facility] Address [address] [place] [address] 7[address] [place] [address] Care Team Providers Care Tobacco Checkout Clerk Name Role Phone Parish Romero NP Primary Care Provider [phone] Allergies Active Allergy Reactions Criticality Noted Date Comments Droperidol Shortness of breath,Other High 11/23/2019 Apnea Erythromycin Nausea Only,Nausea And Vomiting Low 11/23/2019 Morphine And Codeine Nausea And Vomiting Low 2019 Penicillins Rash Low 11/23/2019 Pramipexole Other Low 11/23/2019 Other reaction(s): apnea, Unknown Ropinirole Low 11/23/2019 Other reaction(s): impulsiveness, Mental Status Change, Impulsiveness Medications riboflavin (vitamin B2) 100 mg tablet tablet Vitamin B2 Ac tive carbidopa-levodopa (Sinemet) 25-100 MG tablet 2 tablets in the morning and 2 tablets at noon and 2 tablets in the evening and 2 tablets before bedtime. Takes one dose 4 times daily: 7, 11, 3, 7 . 03/21/20 20 Active selegiline (Eldepryl) 5 MG capsule Take 5 mg by mouth in the morning. 10/21/19 23 Active estradiol (Estrace) 0.1 MG/GM vaginal cream Insert 2 g into the vagina. 06/04/20 23 Active carbidopa-levodopa CR (Sinemet CR) 50-200 MG ER tablet Take 1 tablet by mouth at bedtime. 04/16/20 23 Active Sodium Fluoride (PreviDent 5000 Booster Plus) 1.1 % paste Please Roscoe with toothpaste twice a day 96 g 09/21/20 23 Active ondansetron ODT (Zofran-ODT) 4 MG disintegrating tablet Take 4 mg by mouth every 8 (eight) hours if needed for nausea. PRN 12/16/19 Active alendronate (Fosamax) 10 MG tabletIndications: Osteoporosis without current pathological fracture, unspecified osteoporosis type Take 1 tablet (10 mg) by mouth before breakfast. Take in the morning with a full glass of water, on an empty stomach, and do not take anything else by mouth or lie down for the next 30 min. 90 tablet 1 08/08/20 Active Additional Information Patient not taking.Reported on 10/13/2024 Calcium Carb-Cholecalcifer ol (Caltrate 600+D3) 600-20 MG-MCG tabletIndications: Osteoporosis without current pathological fracture, unspecified osteoporosis type Take 1 tablet by mouth 2 times daily. 180 tablet 1 08/08/20 Active Additional Information Patient not taking.Reported on 10/13/2024 hyoscyamine ER (Levbid) 0.375 MG 12 hr tabletIndications: Irritable bowel syndrome with both constipation and diarrhea Take 1 tablet (0.375 mg) by mouth every 12 (twelve) hours if needed for cramping. Do not crush or chew. 180 tablet 09/06/20 Active Additional Information Patient not taking.Reported on 10/13/2024 Active Problems Problem Noted Date Diagnosed Date Irritable bowel syndrome wit h both constipation and diarrhea 09/06/2024 Osteoporosis without current pathological fractu re 08/04/2024 Cystocele, unspecified 08/04/2024 Frequent headaches 11/24/2022 Parkinsonism 11/24/2022 Plantar fascial fibromatosis of left foot 2022 Calculus of kidney 01/09/2022 Encounters Date Type Department Care Team Description 12/08/2024 9:00 AM EST Immunization [facility] MEDICAL [address] [place] [address] Need for vaccination (Primary Dx) 10/25/2024 9:20 AM EST Office Visit [facility] Dental [address] [place] [address] Juliette Arriaza LLD Stage 2 grade B generalized periodontitis per AAP/EFP 2017 classification (Primary Dx); Encounter for dental examination 10/22/2024 Orders Only [facility] Information Management [address] [place] [address] Parish Romero NP 10/13/2024 9:00 AM EST Office Visit [facility] MEDICAL [address] [place] [address] Parish Romero NP Irritable bowel syndrome with both constipation and diarrhea (Primary Dx); Cystocele with rectocele; Osteoporosis without current pathological fracture, unspecified osteoporosis type; Parkinson's disease, unspecified whether dyskinesia present, unspecified whether manifestations fluctuate (CMS/HCC); Weight loss; Healthcare maintenance 10/06/2024 Travel from Last 3 Months Immunizations Name Administration Dates Next Due INFLUENZA VACCINE QUADRIVALE NT RECOMBINANT PRESERVATIVE FREE RIV4 08/04/2020 Influenza Quadrivalent Adjuvanted 10/22/2023 Influenza injectable quadrivalent preservative f ree 08/16/2021 Influenza, trivalent, adjuvanted 08/08/2024 Lindsay SARS-CoV-2 Vaccination 01/15/2021 Moderna Covid-19 Vaccine 12+ 12/08/2024,08/06/20 23 Moderna Covid-19 Vaccine 6+ Bivalent 09/26/2022 Tdap 04/09/2020 Family History Medical History Relation Name Comments Alcohol abuse Brother Dago (half-brother) Arthritis Father Charles Hearing loss Father Charles Drug abuse Mother Guerline Mental illness Mother Guerline Alcohol abuse Mother's Brother Chucky Hearing loss Sister Stefanie Relation Name Status Comments Brother Dago (half-brother) Father Charles Mother Guerline Mother's Brother Chucky Sister Stefanie Social History Tobacco Use Types Packs/Day Years Used Date Smoking Tobacco: Never Passive Smoke Exposure: Never Smokeless Tobacco: Never Tobacco Cessation:Counseling Given: Not Answered Alcohol Use Standard Drinks/Week Comments Not Currently 0 (1 standard drink = 0.6 oz pur e alcohol) 1 or 2 small drinks per year Housing Stability Answer Date Recorded What is your housing situation today? I have gina keisha 08/08/[address] you li [...] Orientation Straight 11/24/2022 11 :12 AM EST Last Filed Vital Signs Vital Sign Reading Time Taken Comments Blood Pressure 130/80 10/13/2024 9:05 AM EST Pulse 72 10/13/2024 9:05 AM EST Temperature 36.4 ??C (97.6 ??F) 10/13/2024 9:05 AM ES T Respiratory Rate 16 08/06/2023 9:36 AM EDT Oxygen Saturation 98% 10/22/2023 9:02 AM EST Inhaled Oxygen Concentration - - Weight 58.1 kg (128 lb) 10/13/2024 9:05 AM EST Height 162.6 cm (5' 4 ) 08/08/2024 9:00 AM EDT Body Mass Index 21.97 08/08/2024 9:00 AM EDT Plan of Treatment Upcoming Encounters Date Type Department Care Team (Late st Contact Info) Description 01/17/2025 11:30 AM EDT Telemedicine [facility] NUTRITION [address] [place] [address] Ida Donovan, FAIZA [address] [facility] [place] [address] 02/09/2025 9:00 AM EDT Office Visit [facility] MEDICAL [address] [place] [address] Parish Romero, ABIEL [address] [place] [address] 04/27/2025 9:20 AM EDT Office Visit [facility] Dental [address] [place] [address] Juliette Arriaza LLD [address] [place] [address] Health Maintenance Due Date Last Done Comments CT Colonography 1957 FIT DNA/Cologuard 1957 FIT 1957 FOBT 1957 Sigmoidoscopy 1957 Alcohol/Substance Use Screening 1969 Hepatitis C Screening 1975 Hepatitis A Vaccines (1 of 2 - Risk 2-dose series) 1976 Pneumococcal Vaccine: 50+ Years (1 of 1 - PCV) 2007 Zoster Vaccines (1 of 2) 2007 Hepatitis B Vaccines (1 of 3 - Risk 3-dose series) 2017 Dental X-Ray: Bitewings 04/21/2025 04/20/20 24, 11/24/2022, 11/12/2021, Additional history exists Dental Oral Exam 04/25/2025 10/25/2024, 07/2024, 10/13/2023, Additional history exists Dental Prophylaxis 04/25/2025 10/25/2024, 0 04/20/2024, 10/13/2023, Additional history exists Depression Screening 08/08/2025 08/08/2024, 08/08/20 24 SDOH Screening 08/08/2025 08/08/2024 Tobacco Screening 10/25/2025 10/25/2024 Mammogram 12/29/2025 12/30/2023, 12/11, 12/24/2021, Additional history exists Dental X-Ray: Full Mouth 04/21/2027 04/20/2024, 03/12 DTaP/Tdap/Td Vaccines (2 - Td or Tdap) 04/09/2030 04/09/2020 Colonoscopy 03/18/2032 03/18/2022 Colorectal Cancer Screening 03/18/2032 RSV Patients and Patients Aged 60 years or older (1 - 1-dose 75+ series) 2032 Influenza Vaccine Completed 08/08/2024, , 08/16/2021, Additional history exists COVID-19 Vaccine Completed 12/08/2024, , 09/26/2022, Additional history exists HIB Vaccines Aged Out No longer eligi ble based on patient's age to complete this topic HPV Vaccines Aged Out No longer eligi ble based on patient's age to complete this topic IPV Vaccines Aged Out No longer eligi ble based on patient's age to complete this topic Meningococcal Vaccine Aged Out No jalil gavin eligible based on patient's age to complete this topic RSV under 20 months Aged Out No longe r eligible based on patient's age to complete this topic Rotavirus Vaccines Aged Out No longer eligible based on patient's age to complete this topic Procedures Procedure Name Priority Date/Time Associated Diagnosis Comments ORAL HYGIENE INSTRUCTIONS Routine 10/25/2024 9:20 AM EST Full PROPHYLAXIS - ADULT Routine 10/25/2024 9:20 AM EST PERIODIC ORAL EVALUATION - ESTABLISHED PATIENT Routine 10/25/2024 9:20 AM EST COMPREHENSIVE METABOLIC PANEL Routine 10/19/2024 9:56 AM EST CBC WITH AUTO DIFFERENTIAL Routine 10/19/2024 9:55 AM EST AMB REFERRAL TO OB-[employer]UT[employer] SALES CONSULTANT Routine 10/14/2024 Cystocele with rectocele INTRAORAL - COMPLETE SERIES OF RADIOGRAPHIC IMAGES Routine 04/20/2024 10:00 AM EDT BI MAMMOGRAM SCREENING BILATERAL Routine 12/30/2023 Healthcare maintenance COLONOSCOPY Routine 03/18/2022 12:00 AM EDT from Last 3 Months or Most Recently Relevant to Health Maintenance Results * Comprehensive Metabolic Panel (10/19/2024 9:56 AM EST) Blood Venous blood specimen / Unknown Parish Romero NP LAB BLOOD ORDERABLES Final R esult * CBC auto differential (10/19/2024 9:55 AM EST) Blood Venous blood specimen / Unknown us Parish Romero NP LAB BLOOD ORDERABLES Final R esult * Referral to Obstetrics / Gynecology (10/14/2024) us Parish Romero NP OUTPATIENT REFERRAL ORDERABL ES Final Result * BI Mammogram Screening Bilateral (12/30/2023) Anatomical Region Laterality Modality Breast Bilateral Mammography Parish Romero NP IMG BI PROCEDURES Final Resu lt * COLONOSCOPY: [facility] (03/18/2022 12:00 AM EDT) Anatomical Region Laterality Modality Endoscopy 03/18/2022 Narrative 03/18/2022 12:00 AM EDT Refer to [facility] for result details Legacy Procedure: COLONOSCOPY: [facility] Procedure Note Provider, MD Ab - 02/05/2023 Refer to [facility] for result details Legacy Procedure: COLONOSCOPY: [facility] Historical Provider ENDOSCOPY PROCEDURE ORDER IVA Final Result from Last 3 Months or Most Recently Relevant to Health Maintenance Insurance [facility] DUAL COMPLETE HMO Care Teams Tobacco Checkout Clerk Relationship Specialty Start Date End Date Parish Romero NP [address] [place] [address] PCP - General Internal Medicine 02/18/23
--- OUTSIDE RECORDS SUMMARY | 2024-12-12 21:11 | XMS_ITS | Encounter Summary ---
Author Organization [employer] Address [address] [place] [address] Care Team Providers Care Vending Machine Coin Collector Name Role Phone Parish Romero NP Primary Care Provider [phone] Reason for Visit * Reason Comments Med Change Request Encounter Details Date Type Department Care Team ([facility] st Contact Info) Description 09/06/2024 [place] [facility] MEDICAL [address] [place] [address] Parish Romero NP [address] [place] [address] Irritable bowel syndrome with both constipation and diarrhea Social History Tobacco Use Types Packs/Day Years [...] t he electric, gas, oil or water [email or web address] threatened to shut off services in your [...] AM EST documented as of this encounter Miscellaneous Notes * Telephone Encounter - Joy Ho LPN - 09/19/2024 11:46 AM EST My chart message sent to patient * Telephone Encounter - Rita Gill - 09/16/2024 3:16 PM EST Patient called again * Telephone Encounter - Estrella Mccarthy - 09/16/2024 9:16 AM EST Patient called Please call back * Telephone Encounter - Alexandria Tillman RN - 09/15/2024 3:33 PM EST LMOM for patient to call. * Telephone Encounter - Joy Ho LPN - 09/12/2024 3:54 PM EST Call placed to patient. LMOM to return call. * Telephone Encounter - Parish Romero NP - 09/10/2024 9:34 AM EST Please call pt. She has symptoms of irritable bowel. She tried Bentyl in the past but stopped due to somnolence. I recently prescribed LevBid, but her insurance will not pay for that. She can either (1) pay for the LevBid out of pocket, or (2) call her GI, make an appt, and see what they suggest. If her GI prescribes the LevBid, her insurance will probably pay for it.. documented in this encounter Plan of Treatment Upcoming Encounters Date Type Department Care Team (Late st Contact Info) Description 01/17/2025 11:30 AM EDT Telemedicine [facility] NUTRITION [address] [place] [address] Ida Donovan, RD [address] [place] [address] 02/09/2025 9:00 AM EDT Office Visit [facility] MEDICAL [address] [place] [address] Parish Romero NP [address] [place] [address] 04/27/2025 9:20 AM EDT Office Visit [facility] Dental [address] [place] [address] Juliette Arriaza LLD [address] [place] [address] documented as of this encounter Visit Diagnoses Diagnosis Irritable bowel syndrome with both constipation and diarrhea documented in this encounter Care Teams Vending Machine Coin Collector Relationship Specialty Start Date End Date Parish Romero NP [address] [place] [address] PCP - General Internal Medicine 02/18/23 documented as of this encounter
--- OUTSIDE RECORDS SUMMARY | 2024-12-12 21:11 | XMS_ITS | Encounter Summary ---
Author Organization [employer] [facility] Address [address] [place] [address] 7[address] [place] [address] Care Team Providers Care Cigar Making Machine Operator Name Role Phone Parish Romero NP Primary Care Provider Encounter Details Date Type Department Care Team (Latest Contact Info) Description 05/19/2022 Abstract [facility] Dental, Provider, DDS Social [...] Info) Description 01/17/2025 11:30 AM EDT Telemedicine [facility] NUTRITION [address] [place] [address] Ida Donovan, RD [address] [place] [address] 02/09/2025 9:00 AM EDT Office Visit [facility] MEDICAL [address] [place] [address] Parsih Romero NP [address] [place] [address] 04/27/2025 9:20 AM EDT Office Visit [facility] Dental [address] [place] [address] Juliette Arriaza LLD [address] [place] [address] documented as of this encounter Visit Diagnoses Not on filedocumented in this encounter Care Teams Cigar Making Machine Operator Relationship Specialty Start Date End Date Parish Romero NP [address] [place] [address] PCP - General Internal Medicine 02/18/23 documented as of this encounter
== END ==
LOC: HO.SL 20:30
PROVIDERS: Visit Provider Nurse Practitioner Family
DX: G47.19 Other hypersomnia (principal); G20.B1 Parkinson's disease with dyskinesia, without mention of fluctuations; R06.83 Snoring
CPT/HCPCS: 95810

== ENCOUNTER 2025-05-15 10:56 | Outpatient (AMB) | payer MEDICARE, SELFPAY ==
--- NOTE | 2025-05-15 11:00 | A.OFFVIS_ITS ---
Vital Signs 05/15/25 11:01 Height 5 ft 4 in Weight 128 lb 6 oz BMI 22.0 BP 120/80 Blood Pressure Location Lt brachial Position Sitting Pulse 82 Pulse Source Pulse Oximeter Pulse Oximetry (%) 99 Oxygen Delivery Method Room Air Intake Visit Reasons: 6 mo follow up Intake Note: Patient presents follow up Parkinson/Migraine medication. PSG in chart Sanding Machine Tender Required: No Accompanied by: Self / Same As Patient Allergies droperidol (From Inapsine) Allergy (Verified 05/15/25 11:03) unknown Penicillins Allergy (Verified 05/15/25 11:03) Unknown pramipexole (From Mirapex) Allergy (Verified 05/15/25 11:03) unknown ropinirole (From Requip) Allergy (Verified 05/15/25 11:03) unknown Do you need a note to return to daycare/school/sports/work: No HPI Comments Details: 69-yr-old female presents for f/u visit of movement d/o. Pt denies any significant interval medical history changes. However, pt has had to concentrate on helping her w/ his health issues. 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 She states she did not tolerate the alendronate- for diagnosis of osteoporosis. Pt's current PD medication regimen: CD-LD 25-100mg 2 tabs qid and CD-LD ER 50- 200mg qhs. Selegiline 5 mg q.a.m.- it helps her anxiety, again notes it has a high co-pay on her current insurance. Overall, her movements are stable. If tired or stressed, especially in the afternoon, the dystonia will start kicking in. She feels a bit better about identifying her Parkinson's versus dystonia symptoms. ADL's: Ind Swallowing: Occasional- then cannot consider eating that food for months. Uses strategies to identify and prevent choking. Using Calcium and Mag gummies. Was holding B2- as she started to choke on it. Has a family member who is a [employer]- who gives her tips. Drooling: None Orthostatic lightheadedness: Occasionally- trying to drink enough Constipation: Chronic constipation- continues to work on diet. Maybe impacted by the pessary placement. Followed by [facility] : Chronic vaginal prolapse, previously had pelvic floor therapy. She is currently using a pesary. Without the pesary, the prolapse can prevent urination. Freezing: Occasionally Stiffness: Can be stiff. Tremor: Some but not a lot Falls: No interval falls Hallucinations: None. Previously when on amantadine. Memory: Good. Some word retrieval at times. Sleep: Sleep study was normal. Sleeps better if she is more active. But sleeps l ess well if not as active or had done more activity than usual- like she cannot get comfortable in any position. Prone to pacing in general. Prone to lower extremity and upper extremity restlessness, urge to move. She has a h/o menorrhagia, tried on oral iron supplement- did not tolerate it. Exercise: She is active through volunteering at the [employer]- and is now lifting more regularly, she is encouraged her cold volunteers to allow her to lift and be active as she feels able to.. Is hoping to return to the [facility]- has not been going due to her recent medical appointments. Social: she now has foster grandchildren as her neighbor has 4 foster children. Her grandchildren live in [place]. 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 A noticing an increase in migraine attacks, since holding B2, more stress. A migraine can last 1-3 days. Baseline migraine headache: Throbbing headache a/w photophobia, phonophobia, fatigue, activity intolerance. Previously had tried Sumatriptan and Naratriptan, but caused rebound headaches. [facility] Medical History Snoring Tick bite Parkinson disease Nephroblastomatosis Surgical History H/O lithotripsy H/O: hysterectomy Family History Mother HTN (hypertension) Father HTN (hypertension) Social History Household Members: Spouse and Children Alcohol intake: current Alcohol intake frequency: does not drink Patient Tobacco Use Status: Never used Tobacco Current occupational status: retired Physical Exam Vital Signs: Last Vital Signs Pulse 82 05/15/25 11:01 BP 120/80 05/15/25 11:01 Pulse Ox 99 05/15/25 11:01 Oxygen Delivery Method Room Air 05/15/25 11:01 BMI result Body Mass Index 22.0 Const General: cooperative and no acute distress Resp Effort & Inspection: normal respiratory effort and able to speak in complete sentences Neuro Other: General: A&O x's 3 Expression: Mild decreased expression Voice: Soft Tremor: No visible tremor today. Tone: RUE tone. Foot taps- elicits mild right foot and toes dystonia. Dyskinesia: Mild oral lingual dyskinesia FFM: Slightly decreased, more so on left Foot taps: Bradykinesia, more so on left Gait: Stands well, decreased arm swing, knees slightly bent, short steps with lower floor clearance, overall steady gait Psych: Pleasant affect Assessment & Plan Assessment & Plan (1) Parkinson's disease with dyskinesia: Comment: More dystonic features. No h/o genetic testing done to r/o HD. Initial diagnosis in [place]. Code(s): G20.B1 - Parkinson's disease with dyskinesia, without mention of fluctuations Category: Medical Qualifiers: Fluctuating manifestations: with fluctuating manifestations Qualified Code(s): G20.B2 - Parkinson's disease with dyskinesia, with fluctuations (2) Snoring: Code(s): R06.83 - Snoring Category: Medical (3) Excessive daytime sleepiness: Comment: ESS -12 Code(s): G47.19 - Other hypersomnia Category: Medical (4) Migraine headache with aura: Code(s): G43.109 - Migraine with aura, not intractable, without status migrainosus Category: Medical Qualifiers: Status migrainosus presence: without status migrainosus Intractability: not intractable Qualified Code(s): G43.109 - Migraine with aura, not intractable, without status migrainosus (5) Cervical dystonia: Code(s): G24.3 - Spasmodic torticollis Category: Medical Plan For sleep difficulties, daytime sleepiness, snoring, RLS s/s: 12/12/2024- in-lab PSG w/o evidence for sleep apnea or PLMS. We will request recent labs from PCP-to assess for recent evidence of anemia, and most recent ferritin level of done. Future considerations: If hypo ferritin anemia present, consider Hematology consult for possible iron infusion-as patient has not tolerated oral iron supplements in the past. For PD- dystonic- Continue to try to take increased fluids.. Continue increasing physical activity. Continue Sinemet 25-100mg 2 tabs QID at 7am, 11am, 3pm, 7pm Continue Sinemet CR 50-200mg 1 tab qhs. Continue Selegeline 5mg q.a.m.- this may indeed help her mood/anxiety. Could consider trialing a antidepressant/antianxiety agent instead. * Sending this order specifically to [facility] pharmacy, as selegiline has a high [id number] co-pay. Inbrija prn dystonia (has sample). Previous trials- pramipexole and ropinirole- not tolerated. Amantadine caused hallucinations. ? For headaches- Resume Riboflavin 200mg bid for prevention- advised to check online for al Ibuprofen/Aleve/ at onset of migraine onset, may take w/ Benadryl. Trial Rimegepant ODT (Nurtec ODT) 75mg, 1 tab at onset of headache.. Max of 1 tabs (75mg) per 24 hours. May adjunct with OTC Tylenol 650mg q 4 hours, Ibuprofen 600mg q 6 hours, or Naproxen 440mg q 12 hrs prn. Potential adverse effects, include but are not limited to fatigue, nausea, dry mouth, constipation. Info shared on nonpharmacological migraine treatment interventions. Previous migraine treatment trials: Sumatriptan and naratriptan caused rebound headache. Magnesium previously not tolerated. ? For cervical dystonia- Monitor clinically. For dizziness Dizziness improved- monitor clinically ? f/u in 6 months or sooner prn. Medications: Refilled selegiline HCl 5 mg PO DAILY 90 caps 3RF 90 days Coding Level of Care Code Est Pt Level 4 (59207) Complex EM visit Add On G2211 Diagnoses Parkinson's disease with dyskinesia and fluctuating manifestations G20.B2 Fluctuating manifestations: with fluctuating manifestations Snoring R06.83 Excessive daytime sleepiness G47.19 Migraine with aura and without status migrainosus, not intractable G43.109 Status migrainosus presence: without status migrainosus Intractability: not intractable Cervical dystonia G24.3
[2025-05-15 11:01] VITALS: BP 120/80; PULSE 82; O2SAT 99; BMI 22.0
--- OUTSIDE RECORDS SUMMARY | 2025-05-15 11:55 | XMS_ITS | Clinical Summary ---
Author Organization [employer] Address [address] [place] [address] [address] [place] [address] Care Team Providers Care Ice Cream Shop Associate Name Role Phone Parish Romero NP Primary Care Provider Allergies Active Allergy Reactions Criticality Noted Date [...] times daily: 7, 11, 3, 7 . 0 Active selegiline (Eldepryl) 5 MG capsule Take 5 mg by mouth in the morning. 3 Active estradiol (Estrace) 0.1 MG/GM vaginal cream Insert 2 g into the vagina. 3 Active carbidopa-levodopa CR (Sinemet CR) 50-200 MG ER tablet Take 1 tablet by mouth at bedtime. 3 Active ondansetron ODT (Zofran-ODT) 4 MG disintegrating tablet Take 4 mg by mouth every 8 (eight) hours if needed for nausea. PRN 4 Active Calcium-Phosphorus -Vitamin D (CALCIUM/VITAMIN D3/ADULT GUMMY PO) Take by mouth. Active cyanocobalamin (Vitamin B-12) 100 MCG tablet Take 100 mcg by mouth Once per day. Active Sodium Fluoride (PreviDent 5000 Booster Plus) 1.1 % paste Please [place] with toothpaste twice a day 96 g Active Active Problems Problem Noted Date Diagnosed Date Irritable bowel syndrome wit h both constipation and diarrhea 09/06/2024 Osteoporosis without current pathological fractu re 08/04/2024 Cystocele with rectocele 08/04/2024 Frequent headaches 11/24/2022 Parkinsonism 11/24/2022 Plantar fascial fibromatosis of left foot 2022 Calculus of kidney 01/09/2022 Encounters Date Type Department Care Team Description 03/27/2025 3:[address] [facility] NUTRITION [address] [place] [id number] Irritable bowel syndrome with both constipation and diarrhea (Primary Dx) 03/06/2025 Travel 02/21/2025 9:00 AM EDT Office Visit [facility] [address] [place] [address] Fallon Red L[place] 02/15/2025 11:00 AM EDT Office Visit [facility] [address] [place] [address] [place] L[place] 02/14/2025 10:00 AM EDT Office Visit [facility] [address] [place] [address] Fallon Red L[place] 02/13/2025 Travel from Last 3 Months Immunizations Immunization Administration Dates Next Due INFLUENZA VACCINE QUADRIVALE NT RECOMBINANT PRESERVATIVE FREE RIV4 08/04/2020 Influenza Quadrivalent Adjuvanted 10/22/2023 Influenza injectable quadrivalent preservative f ree 08/16/2021 Influenza, trivalent, adjuvanted 08/08/2024 [place] SARS-CoV-2 Vaccination 01/15/2021 Moderna Covid-19 Vaccine 12+ 12/08/2024,08/06/20 23 Moderna Covid-19 Vaccine 6+ Bivalent 09/26/2022 Pneumococcal Conjugate PCV 20 02/09/2025 Tdap 04/09/2020 Family History Medical History Relation [...] 1 or 2 small drinks per year Alcohol Answer Date Recorded How often do you have a drink containing alcohol ? 0 02/09/2025 How many drinks containing a lcohol do you have on a typical day when you are drinking? 0 02/09/2025 How often do you have six or more drinks on one occasion? 0 02/09/2025 Housing Stability Answer Date Recorded What is [...] Sign Reading Time Taken Comments Blood Pressure 147/82 02/09/2025 8:56 AM EDT Pulse 87 02/09/2025 8:56 AM EDT Temperature 36.6 C (97.9 F) 02/09/2025 8:56 AM EDT Respiratory Rate 16 08/06/2023 9:36 AM EDT Oxygen Saturation 98% 10/22/2023 9:02 AM EST Inhaled Oxygen Concentration - - Weight 59.4 kg (131 lb) 02/09/2025 8:56 AM EDT Height 162.6 cm (5' 4 ) 08/08/2024 9:00 AM EDT Body Mass Index 22.49 08/08/2024 9:00 AM EDT Plan of Treatment Upcoming Encounters Date Type Department Care Team (Late st Contact Info) Description 09/19/2025 2:[address] [facility] NUTRITION [address] [place] [address] Ida Donovan, FAIZA [address] [place] [address] 10/17/2025 10:00 AM EST Office Visit [facility] MEDICAL [address] [place] [address] Parish Romero NP [address] [place] [address] Health Maintenance Due Date Last Done Comments CT Colonography 1957 FIT DNA/Cologuard 1957 FOBT 1957 Sigmoidoscopy 1957 Hepatitis C Screening 1975 Hepatitis A Vaccines (1 of 2 - Risk 2-dose series) 1976 Zoster Vaccines (1 of 2) 2007 Hepatitis B Vaccines (1 of 3 - Risk 3-dose series) 2017 Dental X-Ray: Bitewings 04/21/2025 04/20/20 24, 11/24/2022, 11/12/2021, Additional history exists Dental Oral Exam 04/25/2025 10/25/2024, 07/2024, 10/13/2023, Additional history exists Dental Prophylaxis 04/25/2025 10/25/2024, 0 04/20/2024, 10/13/2023, Additional history exists COVID-19 Vaccine ( season) 2025 12/08/2024, 08/06/2023, 09/26/2022, Additional history exists Influenza Vaccine (#1) 2025 , 10/22/2023, 08/16/2021, Additional history exists Depression Screening 08/08/2025 08/08/2024, 08/08/20 SDOH Screening 08/08/2025 08/08/2024 FIT 11/01/2025 11/01/2024 Mammogram 12/29/2025 12/30/2023, 12/11, 12/30/2023, Additional history exists Alcohol/Substance Use Screening 02/09/2026 02/09/2025 Tobacco Screening 02/21/2026 02/21/2025 Dental X-Ray: Full Mouth 04/21/2027 04/20/2024, 03/12 DTaP/Tdap/Td Vaccines (2 - Td or Tdap) 04/09/2030 04/09/2020 Colonoscopy 03/18/2032 03/18/2022 Colorectal Cancer Screening 03/18/2032 RSV Patients and Patients Aged 60 years or older (1 - 1-dose 75+ series) 2032 Pneumococcal Vaccine: 50+ Years Completed 02/09/2025 HIB Vaccines Aged Out No longer eligi ble based on patient's age to complete this topic HPV Vaccines Aged Out No longer eligi ble based on patient's age to complete this topic IPV Vaccines Aged Out No longer eligi ble based on patient's age to complete this topic Meningococcal B Vaccine Aged Out No l onger eligible based on patient's age to complete [...] Procedure Name Priority Date/Time Associated Diagnosis Comments 12 MOD RESIN-BASED COMPOSITE - 3 SURF, POSTERIOR Routine 02/21/2025 9:00 AM EDT 13 M RESIN-BASED COMPOSITE - 1 SURF, POSTERIOR Routine 02/21/2025 9:00 AM EDT 10 DL RESIN-BASED COMPOSITE - 2 SURF, ANTERIOR Routine 02/15/2025 11:00 AM EDT 11 DL RESIN-BASED COMPOSITE - 2 SURF, ANTERIOR Routine 02/14/2025 10:00 AM EDT Full PROPHYLAXIS - ADULT Routine 10/25/2024 9:20 AM EST PERIODIC ORAL EVALUATION - ESTABLISHED PATIENT Routine 10/25/2024 9:20 AM EST INTRAORAL - COMPLETE SERIES OF RADIOGRAPHIC IMAGES Routine 04/20/2024 10:00 AM EDT BI MAMMOGRAM SCREENING BILATERAL Routine 12/30/2023 Healthcare maintenance COLONOSCOPY Routine 03/18/2022 12:00 AM EDT from Last 3 Months or Most Recently Relevant to Health Maintenance Results * BI Mammogram Screening Bilateral (12/30/2023) Anatomical Region Laterality Modality Breast Bilateral Mammography Parish Romero OPHTHALMIC MEDICAL TECHNICIAN IMG BI PROCEDURES Final Resu lt * COLONOSCOPY: [facility] (03/18/2022 12:00 AM EDT) Anatomical Region Laterality Modality Endoscopy 03/18/2022 Narrative 03/18/2022 12:00 AM EDT Refer to Fovea for result details Legacy Procedure: COLONOSCOPY: [facility] Procedure Note Provider, MD Ab - 02/05/2023 Refer to Valerie for result details Legacy Procedure: COLONOSCOPY: [facility] Historical Provider ENDOSCOPY PROCEDURE ORDER IVA Final Result from Last 3 Months or Most Recently Relevant to Health Maintenance Insurance [facility] MEDICARE ADVANTAGE HMO DENTAL - [facility] PPO Care Teams Ice Cream Shop Associate Relationship Specialty Start Date End Date Parish Romero [facility] [place] [address] PCP - General Internal Medicine 02/18/23
--- OUTSIDE RECORDS SUMMARY | 2025-05-15 11:55 | XMS_ITS | Encounter Summary ---
Author Organization [facility] Address [address] [place] [address] [place] [phone] Phone Care Team Providers Care Respiratory Care Program Director Name Role Phone Eva King MANAGEMENT DEVELOPER Primary Care Provider Parish Romero NP Primary Care Provide r Parish Romero SPRING SETTER Primary Care Provide r Encounter Details Date Type Department Care Team (Latest Contact Info) Description 12/15/2019 Transcribe Orders Virtual Department [address] [place] [address] Jared Spencer MD [address] [place] [address], [address] [phone] [email or web address] Calculus of kidney (Primary Dx) Social History Tobacco Use Types Packs/Day Years Used Date Smoking Tobacco: Never Smokeless Tobacco: Never Alcohol Use Standard Drinks/Week Comments Not Currently 0 (1 standard drink = 0.6 oz pur e alcohol) Comments No Sex and Gender Information Value Date Recorded Sex Assigned at Female 11/23/2019 2:23 PM EST Legal Sex Female 3:00 PM EDT Gender Identity Non-binary 10/07/2024 4:53 PM EST Sexual Orientation Straight 11/23/2019 2: 23 PM EST documented as of this encounter Plan of Treatment Not on file documented as of this encounter Visit Diagnoses Diagnosis Calculus of kidney- Primary documented in this encounter Additional Health Concerns Infection Onset Date Last Indicated Resolved Time CoV-Risk 12/16/2023 12/16/2023 12/27/2023 1:21 AM EDT CDiff-Risk 10/19/2024 11/01/2024 10/26/2024 1:23 AM EST CDiff-Risk 11/01/2024 11/01/2024 11/01/2024 5:25 PM EST documented as of this encounter Care Teams Respiratory Care Program Director Relationship Specialty Start Date End Date Eva King CNP [address] [place] [id number] [email or web address] PCP - General Family Medicine 02/23/19 03/17/22 Parish Romero NP [address] [place] [phone] PCP - General Nurse Practitioner 06/04/23 12/15/23 Parish Romero NP [address] [place] [id number] PCP - General Nurse Practitioner 12/16/23 documented as of this encounter Additional Source Comments The information contained in this document represents components of the legal health record. It is not the complete legal health record.[facility]
--- OUTSIDE RECORDS SUMMARY | 2025-05-15 11:55 | XMS_ITS | Clinical Summary ---
Author Organization [facility] Address [address] [facility] [address] [place] [address] Phone Care Team Providers Care Interactive Web Developer Name Role Phone Parish Romero NP Primary Care Provider + [phone] Allergies Active Allergy Reactions Criticality Noted Date [...] Job Start Date Job End Date Retired [employer] Not on file Not on file Not on file Plan of Treatment Health Maintenance Due Date Last Done Comments Breast Cancer Screening 1955 Colorectal Cancer Screening: Annual FOBT 2006 Colorectal Cancer Screening: Colonoscopy 2006 Colorectal Cancer Screening: Sigmoidoscopy 2006 Pneumococcal Vaccine: 50+ Ye ars (1 of 1 - PCV) 2007 Influenza Vaccine (#1) 2025 Hepatitis B Vaccine Aged Out No longe r eligible based on patient's age to complete this topic Insurance Medicare Medicaid [place] Care Teams Interactive Web Developer Relationship Specialty Start Date End Date Parish Romero NP [address] [place] [address] PCP - General Nurse Practitioner 12/23/21
== END 2025-05-15 12:14 | disposition home or self-care (01) ==
LOC: HO.HSMS 10:56
PROVIDERS: PCP Family Medicine; Visit Provider Nurse Practitioner Family
DX: G20.B2 Parkinson's disease with dyskinesia, with fluctuations (principal); R06.83 Snoring; G47.19 Other hypersomnia; G43.109 Migraine with aura, not intractable, without status migrainosus; G24.3 Spasmodic torticollis
CPT/HCPCS: 99214; G2211

== ENCOUNTER → 2025-05-15 10:56 | Outpatient (BNVA) | payer MEDICARE, SELFPAY | PROVIDERS: PCP Family Medicine; Visit Provider Nurse Practitioner Family | DX: G20.B2 Parkinson's disease with dyskinesia, with fluctuations (principal); G47.19 Other hypersomnia; G43.109 Migraine with aura, not intractable, without status migrainosus; G24.3 Spasmodic torticollis; R06.83 Snoring | CPT/HCPCS: 99212 ==